=== PATIENT | female | born 1960 | race American Indian/Alaskan Native ===

== ENCOUNTER 2021-02-14 19:09 | Emergency (ER) | payer OTHER ==
[2021-02-14 22:33] VITALS: BP 163/76
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
== END 2021-02-14 23:30 | disposition home or self-care (01) ==
LOC: ED 19:09
DX: S16.1XXA Strain of muscle, fascia and tendon at neck level, initial encounter (principal); V49.59XA Passenger injured in collision with other motor vehicles in traffic accident, initial encounter; Y92.410 Unspecified street and highway as the place of occurrence of the external cause; Y93.89 Activity, other specified; Y99.8 Other external cause status
CPT/HCPCS: 99282